=== PATIENT | female | born 1970 | race Caucasian/White ===

== ENCOUNTER 2023-12-22 06:34 | Day surgery (SDC) | payer OTHER ==
[~2023-12-22 06:34] MED LIST: Sodium Chloride 0.9% 10 ML Syringe FLUSH PRN; Sodium Chloride 0.9% 2.5 ML Syringe FLUSH PRN; Sodium Chloride 0.9% 20 ML SDV IV PRN; ceFAZolin 2 GM in Sodium Chloride 0.9% 50 ML IV ONE
[2023-12-22] MEDS ORDERED: propofoL 100 ML ONE (06:52)
[2023-12-22] MEDS ORDERED: Ropivacaine 0.5% 5 MG/ML 30 ML SDV ONE (06:53)
[2023-12-22] MEDS ORDERED: Rocuronium Bromide 50 MG/5 ML Syringe ONE (06:59)
[2023-12-22] MEDS ORDERED: Lidocaine 1% 5 ML VIAL ONE (06:59)
[2023-12-22] MEDS ORDERED: Dexamethasone 4 MG/ML 5 ML MDV ONE (06:59)
[2023-12-22] MEDS ORDERED: Ondansetron 4 MG/2 ML SDV ONE (06:59)
[2023-12-22] MEDS ORDERED: Morphine 10 MG/ML SDV ONE (07:00)
[2023-12-22] MEDS: Lactated Ringers 1,000 ML IV SCH (07:14)
[2023-12-22] MEDS ORDERED: Morphine 2 MG/ML SYRINGE IVPUSH PRN (07:17)
[2023-12-22] MEDS ORDERED: droPERidol 5 MG/2 ML SDV IVPUSH PRN (07:17)
[2023-12-22] MEDS ORDERED: fentaNYL 50 MCG/ML SDV IVPUSH PRN (07:17)
[2023-12-22] MEDS ORDERED: HYDROmorphone 1 MG/ML Syringe IVPUSH PRN (07:17)
[2023-12-22] MEDS ORDERED: Metoclopramide 10 MG/2 ML SDV IVPUSH PRN (07:17)
[2023-12-22] MEDS ORDERED: Albuterol 0.083% 2.5 MG/3 ML Neb Soln NEB PRN (07:17)
[2023-12-22] MEDS ORDERED: Ondansetron 4 MG/2 ML SDV IVPUSH PRN (07:17)
[2023-12-22] MEDS ORDERED: Naloxone 0.4 MG/ML SDV IVPUSH PRN (07:17)
[2023-12-22] MEDS ORDERED: Bupivacaine 0.5% 30 ML SDV ONE (07:24)
[2023-12-22] MEDS ORDERED: fentaNYL 250 MCG/5 ML SDV ONE (08:03)
[2023-12-22] MEDS ORDERED: ceFAZolin 2 GM Vial ONE (08:11)
[2023-12-22] MEDS ORDERED: Indocyanine Green 25 MG SDV ONE (08:12)
[2023-12-22] MEDS ORDERED: Famotidine 20 MG/2 ML SDV ONE (08:13)
[2023-12-22] MEDS ORDERED: ePHEDrine 50 MG/ML SDV ONE (08:28)
[2023-12-22] MEDS ORDERED: Sugammadex Sodium 200 MG/2 ML VIAL IV ONE (08:44)
[2023-12-22] MEDS ORDERED: Ketorolac 30 MG/ML SDV ONE (08:49)
== END 2023-12-22 10:45 | disposition home or self-care (01) ==
LOC: MW.SDS 06:34
PROVIDERS: ATTEND Surgery
DX: K80.10 Calculus of gallbladder with chronic cholecystitis without obstruction (principal); K85.10 Biliary acute pancreatitis without necrosis or infection; I10 Essential (primary) hypertension; E78.00 Pure hypercholesterolemia, unspecified; K21.9 Gastro-esophageal reflux disease without esophagitis; Z79.899 Other long term (current) drug therapy; Z91.018 Allergy to other foods
CPT/HCPCS: 47562; 64488; J0131; J0665; J0690; J1100; J1885; J2270; J2704; J2795; J3010; J3490; J7120; 00790; J2405

== ENCOUNTER 2024-07-23 10:31 | Emergency (ER) | payer OTHER ==
[2024-07-23] MEDS: Diphtheria,Pertussis(Acell),Tetanus Vaccine 0.5 ML Syringe IM ONE (11:02)
[2024-07-23] MEDS: Bacitracin Oint 1 GM U/D Packet TOP ONE (11:03)
[2024-07-23] MEDS: Lidocaine 1% 5 ML VIAL INJECT ONE (11:03)
== END 2024-07-23 11:42 | disposition home or self-care (01) ==
LOC: MW.ED 10:31
DX: S92.425B Nondisplaced fracture of distal phalanx of left great toe, initial encounter for open fracture (principal); I10 Essential (primary) hypertension; E66.9 Obesity, unspecified; Z23 Encounter for immunization; Z90.710 Acquired absence of both cervix and uterus; Z79.899 Other long term (current) drug therapy; Z91.018 Allergy to other foods; Z75.8 Other problems related to medical facilities and other health care; Z68.29 Body mass index [BMI] 29.0-29.9, adult; W23.1XXA Caught, crushed, jammed, or pinched between stationary objects, initial encounter
CPT/HCPCS: 12001; 73630-26-LT; 73630-LT; 90471; 90715; 99283-25; J3490

== ENCOUNTER 2025-04-06 07:49 | Day surgery (SDC) | payer OTHER ==
[~2025-04-06 07:49] MED LIST changes: -Sodium Chloride 0.9% 20 ML SDV IV PRN; -ceFAZolin 2 GM in Sodium Chloride 0.9% 50 ML IV ONE
[2025-04-06] MEDS ORDERED: Propofol 200 MG/20 ML SDV ONE (08:01)
[2025-04-06] MEDS: Lactated Ringers 1,000 ML IV SCH (08:20)
== END 2025-04-06 10:30 | disposition home or self-care (01) ==
LOC: MW.SDS 07:49
PROVIDERS: ATTEND Surgery
DX: Z12.11 Encounter for screening for malignant neoplasm of colon (principal); K62.1 Rectal polyp; K57.30 Diverticulosis of large intestine without perforation or abscess without bleeding; E66.811 Obesity, class 1; I10 Essential (primary) hypertension; E78.5 Hyperlipidemia, unspecified; Z68.31 Body mass index [BMI] 31.0-31.9, adult; Z91.018 Allergy to other foods; Z79.899 Other long term (current) drug therapy
CPT/HCPCS: J2003; J2704; J7120